=== PATIENT | female | born 1985 | race Caucasian/White ===

== ENCOUNTER 2016-06-13 02:32 | Emergency (ER) | payer MEDICAID ==
[~2016-06-13] VITALS: Ht 149.9 cm; Wt 63.6 kg
[~2016-06-13 02:32] MED LIST: Z.0.NO CURRENT MEDS
[2016-06-13 02:37] VITALS: BP 119/93; PULSE 75; RESP 16; TEMP 98.3; O2SAT 98
[2016-06-13] MEDS ORDERED: SODIUM CHLOR 0.9% 1000 ML INJ 1,000 ML IV SCH (03:50)
[2016-06-13 04:00] LABS: AUTOMATED NEUTROPHIL # 6.7 TH/MM3 (1.8-7.7); BASOPHIL % 0.5 % (0.0-2.0); EOSINOPHIL # 0.2 TH/MM3 (0-0.4); EOSINOPHIL % 2.1 % (0.0-4.0); HEMATOCRIT 38.2 % (35.0-46.0); HEMO FLAGS DIFF FINAL; LYMPH % 23.1 % (9.0-44.0); LYMPHOCYTE # 2.3 TH/MM3 (1.0-4.8); MEAN CELL VOLUME 96.2 FL (80.0-100.0); MEAN CORPUSCULAR HEMOGLOBIN 33.1 PG (27.0-34.0); MEAN CORPUSCULAR HGB CONC 34.4 % (32.0-36.0); MONO % 6.8 % (0.0-8.0); NEUT % 67.5 % (16.0-70.0); PLATELET COUNT 271 TH/MM3 (150-450); RED BLOOD COUNT 3.97 MIL/MM3 (4.00-5.30); RED CELL DISTRIBUTION WIDTH 13.1 % (11.6-17.2); WHITE BLOOD COUNT 9.9 TH/MM3 (4.0-11.0)
[2016-06-13] MEDS ORDERED: ceFAZolin 2 GM PREMIX 50 ML IV ONE (04:00)
[2016-06-13] MEDS ORDERED: DIPHTH/TETANUS/ACEL PERTUSSIS (BOOSTER) 0.5 ML VIAL/PFS IM ONE (04:00)
[2016-06-13 04:05] LABS: APTT (PATIENT) 28.8 SEC (24.3-30.1); INTERNATIONAL NORMALIZED RATIO 0.9 RATIO; PROTHROMBIN TIME - PATIENT 10.2 SEC (9.8-11.6)
[2016-06-13] MEDS ORDERED: LIDOCAINE 1%/EPINEPHrine 1:100,000 SOLN 20 ML VIAL INFIL ONE (04:15)
[2016-06-13 04:19] LABS: BICARBONATE 21.8 MEQ/L (21.0-32.0)
[2016-06-13 04:20] LABS: POTASSIUM 4.5 MEQ/L (3.5-5.1)
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
[2016-06-13 04:25] LABS: BACTERIA, URINE RARE /hpf; BLOOD, URINE NEG (NEG); COMMENT (UR) CULT NOT INDICATED; CULTURE IF INDICATED CULT NOT INDICATED; GLUCOSE,URINE NEG (NEG); KETONE, URINE NEG (NEG); NITRITE,URINE NEG (NEG); PH, URINE 5.5 (5.0-8.5); SQUAMOUS EPITHELIAL CELL URINE 1 /hpf (0-5); URINE COLOR COLORLESS (YELLW/STRAW)
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
[2016-06-13 06:01] VITALS: BP 98/51
== END 2016-06-13 06:04 | disposition home or self-care (01) ==
LOC: NEPE 02:32
DX: S01.01XA Laceration without foreign body of scalp, initial encounter (principal); M54.2 Cervicalgia; G89.29 Other chronic pain; R51 Headache; Z23 Encounter for immunization; W10.9XXA Fall (on) (from) unspecified stairs and steps, initial encounter; Y99.8 Other external cause status
CPT/HCPCS: 12002; 70450; 72125; 80048; 80320; 81001; 85025; 85610; 85730; 90471; 90715; 96361; 96374; 99284; J0690; J7030

== ENCOUNTER 2016-06-24 13:45 | Emergency (ER) | payer MEDICAID ==
[~2016-06-24] VITALS: Ht 149.9 cm; Wt 60.0 kg
[2016-06-24 13:48] VITALS: BP 131/78; PULSE 83; RESP 15; TEMP 98.2; O2SAT 100
== END 2016-06-24 15:40 | disposition left against medical advice (07) ==
LOC: NED 13:45
DX: Z53.21 Procedure and treatment not carried out due to patient leaving prior to being seen by health care provider (principal)
CPT/HCPCS: 99281

== ENCOUNTER 2017-05-25 17:48 | Emergency (ER) | payer SELFPAY ==
[~2017-05-25] VITALS: Ht 149.9 cm; Wt 63.5 kg
[2017-05-25 17:51] VITALS: BP 176/109; PULSE 95; RESP 16; TEMP 99.6; O2SAT 98
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
[2017-05-25] MEDS ORDERED: AMOXICILLIN/CLAVULANATE K 875 MG TAB PO ONE (19:00)
[2017-05-25] MEDS ORDERED: IBUPROFEN 800 MG TAB PO ONE (19:00)
[2017-05-25] MEDS ORDERED: IBUP1TAB7 PO (19:08)
[2017-05-25] MEDS ORDERED: AUGM875T3 PO (19:08)
== END 2017-05-25 19:28 | disposition home or self-care (01) ==
LOC: NEPK 17:48
DX: S61.452A Open bite of left hand, initial encounter (principal); S61.451A Open bite of right hand, initial encounter; L03.114 Cellulitis of left upper limb; L03.113 Cellulitis of right upper limb; W55.01XA Bitten by cat, initial encounter; Y92.007 Garden or yard of unspecified non-institutional (private) residence as the place of occurrence of the external cause
CPT/HCPCS: 99283

== ENCOUNTER 2017-10-02 11:54 | Emergency (ER) | payer MEDICAID, OTHER ==
[~2017-10-02] VITALS: Ht 149.9 cm; Wt 63.6 kg
[~2017-10-02 11:54] MED LIST changes: +AUGM875T3 PO; +IBUP1TAB7 PO; -Z.0.NO CURRENT MEDS
[2017-10-02 11:57] VITALS: BP 124/84; PULSE 130; RESP 20; TEMP 98.5; O2SAT 98
[2017-10-02 12:15] VITALS: BP 124/84; PULSE 130; RESP 20; TEMP 98.5; O2SAT 98
[2017-10-02 12:41] LABS: AUTOMATED NEUTROPHIL # 4.5 TH/MM3 (1.8-7.7); BASOPHIL % 0.6 % (0.0-2.0); EOSINOPHIL # 0.1 TH/MM3 (0-0.4); EOSINOPHIL % 1.3 % (0.0-4.0); HEMATOCRIT 35.8 % (35.0-46.0); LYMPH % 21.8 % (9.0-44.0); LYMPHOCYTE # 1.4 TH/MM3 (1.0-4.8); MEAN CELL VOLUME 96.8 FL (80.0-100.0); MEAN CORPUSCULAR HEMOGLOBIN 32.6 PG (27.0-34.0); MEAN CORPUSCULAR HGB CONC 33.7 % (32.0-36.0); MONO % 7.8 % (0.0-8.0); MONOCYTE # 0.5 TH/MM3 (0-0.9); NEUT % 68.5 % (16.0-70.0); PLATELET COUNT 257 TH/MM3 (150-450); RED BLOOD COUNT 3.69 MIL/MM3 (4.00-5.30); RED CELL DISTRIBUTION WIDTH 12.2 % (11.6-17.2); WHITE BLOOD COUNT 6.5 TH/MM3 (4.0-11.0)
[2017-10-02 13:09] LABS: AST (GOT) 22 U/L (15-37); BICARBONATE 21.3 MEQ/L (21.0-32.0); BLOOD UREA NITROGEN 12 MG/DL (7-18); CALCIUM 8.7 MG/DL (8.5-10.1); CHLORIDE 108 MEQ/L (98-107); CREATININE 0.87 MG/DL (0.50-1.00); GLOMERULAR FILTRATION RATE 75 ML/MIN (>89); GLUCOSE,RANDOM 88 MG/DL (74-106); SODIUM (NA) 143 MEQ/L (136-145)
[2017-10-02 13:12] LABS: ALKALINE PHOSPHATASE 91 U/L (45-117); ALT (GPT) 33 U/L (10-53); TOTAL BILIRUBIN ADULT 0.4 MG/DL (0.2-1.0); TOTAL PROTEIN 7.2 GM/DL (6.4-8.2)
[2017-10-02 13:22] LABS: ACETAMINOPHEN LESS THAN 2.0 MCG/ML (10.0-30.0)
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
== END 2017-10-02 21:00 | disposition home or self-care (01) ==
LOC: NEPD 11:54
DX: S61.511A Laceration without foreign body of right wrist, initial encounter (principal); S61.512A Laceration without foreign body of left wrist, initial encounter; X78.1XXA Intentional self-harm by knife, initial encounter
CPT/HCPCS: 80053; 80307; 85025; 99284